=== PATIENT | male | born 1965 | race Caucasian/White ===

== ENCOUNTER → 2016-08-03 | Outpatient (CLI) | payer OTHER ==
[~2016-08-03] MED LIST: ASPI-515 PO; ATEN25TA PO; CHOL200024 PO; FAMO10TA PO; IBUP800T PO; METH750T2 PO; SIMV40TA3 PO; UBID100C24 PO
== END | disposition home or self-care (01) ==
LOC: CFH 16:02
PROVIDERS: ATTEND Family Medicine
DX: R22.2 Localized swelling, mass and lump, trunk (principal); M79.89 Other specified soft tissue disorders
CPT/HCPCS: 76604

== ENCOUNTER 2016-08-17 16:45 | Observation (INO) | payer OTHER ==
[~2016-08-17] VITALS: Ht 177.8 cm; Wt 140.0 kg
[2016-08-17] MEDS ORDERED: SODIUM CHLORIDE FLUSH 10ML SYR IVF ONE (17:30)
[2016-08-17] MEDS ORDERED: ASPIRIN 81 MG TABLET CHEW PO ONE (17:30)
[2016-08-17 17:37] LABS: BLOOD UREA NITROGEN 33 mg/dL (7-18)
[2016-08-17 17:41] LABS: IS PT STATUS REG ER OR PRE ER? YES
[2016-08-17] MEDS ORDERED: ASPIRIN 81 MG TABLET CHEW ONE (18:06)
[2016-08-17] MEDS ORDERED: SODIUM CHLORIDE FLUSH 10ML SYR IVF PRN (19:00)
[2016-08-17] MEDS ORDERED: POLYETHYLENE GLYCOL 17 GM PACKET PO PRN (20:00)
[2016-08-17] MEDS ORDERED: BISACODYL 10 MG SUPP PR PRN (20:00)
[2016-08-17] MEDS ORDERED: DOCUSATE 100 MG CAPSULE PO PRN (20:00)
[2016-08-17] MEDS ORDERED: ONDANSETRON ODT 4 MG PO PRN (20:00)
[2016-08-17] MEDS ORDERED: TRAZODONE 50MG TABLET PO PRN (20:00)
[2016-08-17] MEDS ORDERED: ACETAMINOPHEN 325 MG TABLET PO PRN (20:00)
[2016-08-17] MEDS ORDERED: LABETALOL 5MG/ML, 20ML IV PRN (20:00)
[2016-08-17] MEDS: ENOXAPARIN 40 MG/0.4 ML SQ SCH (21:49)
[2016-08-17] MEDS: ATORVASTATIN 80 MG TABLET PO SCH (21:49)
[2016-08-17 21:52] VITALS: BP 144/87
[2016-08-17] MEDS: SODIUM CHLORIDE 0.9% 1,000 ML IV SCH (22:07)
[2016-08-17 23:31] LABS: IS PT STATUS REG ER OR PRE ER? NO
[2016-08-18 02:44] VITALS: BP 135/71
[2016-08-18 05:29] LABS: ASPARTATE AMINO TRANSFERASE 22 U/L (15-37); BLOOD UREA NITROGEN 29 mg/dL (7-18)
[2016-08-18 05:36] LABS: IS PT STATUS REG ER OR PRE ER? NO
[2016-08-18] MEDS: SODIUM CHLORIDE 0.9% 1,000 ML IV SCH ×2 (07:30→16:03)
[2016-08-18] MEDS ORDERED: REGADENOSON 0.4 MG/5 ML SYRINGE ONE (08:03)
[2016-08-18 08:12] VITALS: BP 147/94
[2016-08-18] MEDS: CHOLECALCIFEROL 1,000 UNIT TABLET PO SCH (10:40)
[2016-08-18] MEDS: ASPIRIN 81 MG TABLET EC PO SCH (10:40)
[2016-08-18 17:38] VITALS: BP 150/88
[2016-08-18 19:46] VITALS: BP 137/83
[2016-08-18] MEDS: ATORVASTATIN 80 MG TABLET PO SCH (20:13)
[2016-08-18] MEDS: ENOXAPARIN 40 MG/0.4 ML SQ SCH (20:14)
[2016-08-19] MEDS: SODIUM CHLORIDE 0.9% 1,000 ML IV SCH (01:06)
[2016-08-19 03:08] VITALS: BP 120/75
[2016-08-19 08:10] VITALS: BP 132/86
[2016-08-19] MEDS: CHOLECALCIFEROL 1,000 UNIT TABLET PO SCH (10:26)
[2016-08-19] MEDS: ASPIRIN 81 MG TABLET EC PO SCH (10:27)
[2016-08-19 14:31] VITALS: BP 119/76
== END 2016-08-19 15:08 | disposition home or self-care (01) ==
LOC: ED 19:05 → EDIP 19:15 → INTOOBSV 19:15 → 5SO 20:03
PROVIDERS: ADMIT Internal Medicine
DX: R07.89 Other chest pain (principal); I25.10 Atherosclerotic heart disease of native coronary artery without angina pectoris; M54.9 Dorsalgia, unspecified; M25.511 Pain in right shoulder; I10 Essential (primary) hypertension; E78.5 Hyperlipidemia, unspecified; M06.9 Rheumatoid arthritis, unspecified; K21.9 Gastro-esophageal reflux disease without esophagitis; I25.2 Old myocardial infarction; E66.01 Morbid (severe) obesity due to excess calories; Z86.711 Personal history of pulmonary embolism; Z95.1 Presence of aortocoronary bypass graft; Z95.5 Presence of coronary angioplasty implant and graft; Z98.890 Other specified postprocedural states; Z82.3 Family history of stroke
CPT/HCPCS: 36415; 71020; 78452; 80048; 80053; 80061; 82040; 83735; 84439; 84443; 84484; 85025; 85379; 93005; 93017; 96360; 96361; 96372; 99285; A9502; C9898; G0378; J1650; J2785; J7030

== ENCOUNTER → 2017-07-08 | Outpatient (CLI) | payer OTHER ==
[~2017-07-08] MED LIST changes: -FAMO10TA PO; +FAMO10TA90 PO; +IBUP-1223 PO; -IBUP800T PO
== END | disposition home or self-care (01) ==
LOC: CFH 15:39
PROVIDERS: ATTEND Family Medicine
DX: R07.81 Pleurodynia (principal)
CPT/HCPCS: 71111

== ENCOUNTER → 2018-04-05 | Outpatient (CLI) | payer OTHER | END | disposition home or self-care (01) | LOC: CFH 14:25 | PROVIDERS: ATTEND Family Medicine | DX: M25.561 Pain in right knee (principal) ==

== ENCOUNTER 2019-09-18 16:15 | Inpatient (IN) | payer BC, OTHER ==
[~2019-09-18] VITALS: Ht 177.8 cm; Wt 141.5 kg
[~2019-09-18 16:15] MED LIST changes: +GARL1TAB2 PO; +METO25TA91 PO; +NAPR220C2 PO; +OMEG1CAP30 PO; +SIMV40TA20 PO; -SIMV40TA3 PO
--- NOTE | 2019-09-18 16:48 | NUR ---
Pt states he is having a hard time breathing. recently at [facility] for blood clots in heart and lungs. new rx asa, simvastatin and xeralto. Pt visibly working hard to breathe. Placed Pt on silverware etcher, large bore IV started. Pt VS stable at this time. Will continue to monitor.
[2019-09-18] MEDS ORDERED: SODIUM CHLORIDE FLUSH 10ML SYR IVF ONE (17:00)
[2019-09-18 17:15] LABS: BASOPHILS # (AUTO) 0.04 x10^3/uL (0-0.1); BASOPHILS % (AUTO) 1 % (0-1); EOSINOPHILS # (AUTO) 1.09 x10^3/uL (0-0.4); EOSINOPHILS % (AUTO) 15 % (1-7); LYMPHOCYTES # (AUTO) 1.67 x10^3/uL (1-3.4); LYMPHOCYTES % (AUTO) 22 % (22-44); MD NO; MEAN CORPUSCULAR HEMOGLOBIN 26.8 pg (27.5-34.5); MEAN CORPUSCULAR HGB CONC 32.5 g/dL (33.2-36.2); MEAN CORPUSCULAR VOLUME 82.4 fL (81-97); MEAN PLATELET VOLUME 8.8 fL (7.4-10.4); MONOCYTES # (AUTO) 0.64 x10^3/uL (0.2-0.8); MONOCYTES % (AUTO) 9 % (2-9); NEUTROPHILS # (AUTO) 4.02 x10^3/uL (1.8-6.8); NEUTROPHILS % (AUTO) 54 % (42-75); PLATELET COUNT 193 x10^3/uL (130-400); RED BLOOD COUNT 4.98 x10^6/uL (4.38-5.82); RED CELL DISTRIBUTION WIDTH 15.5 % (9.4-14.8)
[2019-09-18 17:21] LABS: ALANINE AMINOTRANSFERASE 39 U/L (12-78); ANION GAP 7 mmol/L (5-15); CALCIUM 8.4 mg/dL (8.5-10.1); CHLORIDE 109 mmol/L (98-107); CREATININE 0.95 mg/dL (0.7-1.3)
[2019-09-18 17:26] LABS: ALKALINE PHOSPHATASE 71 U/L (45-117); BILIRUBIN,TOTAL 0.8 mg/dL (0.2-1.0); TOTAL PROTEIN 7.4 g/dL (6.4-8.2); TROPONIN I < 0.015 ng/mL (0.000-0.045)
[2019-09-18] MEDS ORDERED: OMNIPAQUE 350 MG/ML, 75ML BOTTLE ONE (18:04)
--- NOTE | 2019-09-18 18:12 | NUR ---
TASK RN: PT TO CT AND BACK. STATES HE VOMITED WHEN GIVEN IV CONTRAST. DENIES NAUSEA AT THIS TIME.
--- NOTE | 2019-09-18 20:48 | NUR ---
US TECH HERE TO TAKE PT FOR PROCEDURE.
[2019-09-18] MEDS ORDERED: ACETAMINOPHEN 325 MG TABLET PO PRN (22:30)
[2019-09-18] MEDS ORDERED: LABETALOL 5MG/ML, 20ML IVPush PRN (22:30)
[2019-09-18] MEDS ORDERED: ONDANSETRON 2MG/ML, 2ML IVPush PRN (22:30)
[2019-09-18] MEDS ORDERED: RIVAROXABAN 10 MG TABLET ONE (22:39)
[2019-09-18] MEDS: RIVAROXABAN 15 MG TABLET PO SCH (23:04)
--- NOTE | 2019-09-19 00:05 | NUR ---
ASSUMED PATIENT CARE AT THIS TIME.
--- NOTE | 2019-09-19 01:00 | NUR ---
PATIENT RESTING IN BED/EVEN UNLABORED RESPIRATIONS, NO NOTED ACUTE DISTRESS. PATIENT'S VITAL SIGNS ARE STABLE. CALL LIGHT WITHIN REACH, BED IN LOWEST LOCKED POSITION. WILL CONTINUE TO MONITOR.
--- NOTE | 2019-09-19 01:59 | NUR ---
BREAK RN. PT RESTING ON [employer] WATCHING TV. VSS. CALL LIGHT WITHIN REACH.
--- NOTE | 2019-09-19 02:10 | NUR ---
REPORT GIVEN TO BREAK RN
--- NOTE | 2019-09-19 02:40 | NUR ---
PATIENT HAS BEEN MOVED FROM [facility] TO [facility] BED TO IMPROVE PATIENT COMFORT. PATIENT IS RESTING IN BED, EVEN-UNLABORED RESPIRATIONS. NO NOTED ACUTE DISTRESS AT THIS TIME. BED IN LOWEST LOCKED POSITION, CALL LIGHT WITHIN REACH. PER GIVEN REPORT PATIENT USED URINAL WITHOUT COMPLICATIONS.
--- NOTE | 2019-09-19 04:19 | NUR ---
PATIENT RESTING IN BED, EVEN-UNLABORED RESPIRATIONS. NO NOTED ACUTE DISTRESS. NO NEEDS IDENTIFIED AT THIS TIME. WILL CONTINUE TO MONITOR.
--- NOTE | 2019-09-19 05:34 | NUR ---
PATIENT LYING ON SIDE IN BED, NO NOTED ACUTE DISTRESS. VITAL SIGNS REMAIN UNCHANGED. WILL CONTINUE TO MONITOR.
[2019-09-19 05:41] LABS: BASOPHILS # (AUTO) 0.03 x10^3/uL (0-0.1); BASOPHILS % (AUTO) 1 % (0-1); EOSINOPHILS # (AUTO) 1.23 x10^3/uL (0-0.4); EOSINOPHILS % (AUTO) 18 % (1-7); LYMPHOCYTES # (AUTO) 1.61 x10^3/uL (1-3.4); LYMPHOCYTES % (AUTO) 24 % (22-44); MD NO; MEAN CORPUSCULAR HEMOGLOBIN 26.9 pg (27.5-34.5); MEAN CORPUSCULAR HGB CONC 32.7 g/dL (33.2-36.2); MEAN CORPUSCULAR VOLUME 82.2 fL (81-97); MEAN PLATELET VOLUME 8.8 fL (7.4-10.4); MONOCYTES % (AUTO) 9 % (2-9); NEUTROPHILS % (AUTO) 48 % (42-75); PLATELET COUNT 182 x10^3/uL (130-400); RED BLOOD COUNT 4.87 x10^6/uL (4.38-5.82); RED CELL DISTRIBUTION WIDTH 15.4 % (9.4-14.8)
[2019-09-19 05:49] LABS: ANION GAP 7 mmol/L (5-15); CALCIUM 8.7 mg/dL (8.5-10.1); CHLORIDE 109 mmol/L (98-107); CREATININE 0.99 mg/dL (0.7-1.3)
--- NOTE | 2019-09-19 06:21 | NUR ---
PATIENT RESTING IN BED, NO NOTED ACUTE DISTRESS. VITAL SIGNS STABLE. NO NOTED NEEDS AT THIS TIME. WILL CONTINUE TO MONITOR.
--- NOTE | 2019-09-19 06:42 | NUR ---
PATIENT AWAKE IN ROOM, UPDATED ON PLAN OF CARE. NO NOTED NEEDS AT THIS TIME. CALL LIGHT WITHIN REACH, BED IN LOWEST LOCKED POSITION.
--- NOTE | 2019-09-19 06:58 | NUR ---
REPORT GIVEN TO ONCOMING RN
--- NOTE | 2019-09-19 08:01 | NUR ---
MED BARON FROM PHARMACY.
--- NOTE | 2019-09-19 08:11 | NUR ---
PT AMBULATED TO THE BR W/ A STEADY GAIT. RETURNED TO ROOM. CONNECTED TO MONITORING. RESP EVEN AND UNLABORED, NADN. BREAKFAST TRAY DELIVERED.
[2019-09-19] MEDS: RIVAROXABAN 15 MG TABLET PO SCH ×2 (08:21→16:38)
--- NOTE | 2019-09-19 08:59 | NUR ---
PT RESTING ON GURNEY, WATCING TV. RESP EVEN AND UNLABORED, VSS, NADN. AWAITING ADMIT.
--- NOTE | 2019-09-19 10:02 | NUR ---
PT RESTING ON GURNEY, WATCING TV. RESP EVEN AND UNLABORED, VSS, NADN. AWAITING ADMIT.
[2019-09-19] MEDS ORDERED: ASPIRIN 81 MG TABLET EC ONE (10:05)
[2019-09-19] MEDS: METOPROLOL SUCCINATE 25 MG TAB.ER.24H PO SCH (10:29)
[2019-09-19] MEDS: ASPIRIN 81 MG TABLET EC PO SCH (10:29)
--- NOTE | 2019-09-19 10:34 | NUR ---
PT MEDICATED PER EMAR. PT TITRATED DOWN TO 1L NC, 96%. PT RESP EVEN AND UNLABORED, VSS, NADN. AWAITING ADMIT.
--- NOTE | 2019-09-19 10:47 | NUR ---
REPORT GIVEN TO SHRUTHI MICHELLE. PT IS READY FOR TRANSPORT.
[2019-09-19 12:23] VITALS: BP 148/78
[2019-09-19] MEDS ORDERED: FUROSEMIDE 20 MG/2 ML ONE (17:03)
[2019-09-19] MEDS: FUROSEMIDE 20 MG/2 ML IV SCH (17:09)
[2019-09-19 18:33] VITALS: BP 130/82
[2019-09-19] MEDS: SIMVASTATIN 40 MG TABLET PO SCH (22:00)
[2019-09-20] VITALS: BP 142/86
[2019-09-20 06:59] LABS: BASOPHILS # (AUTO) 0.06 x10^3/uL (0-0.1); BASOPHILS % (AUTO) 1 % (0-1); EOSINOPHILS # (AUTO) 1.17 x10^3/uL (0-0.4); EOSINOPHILS % (AUTO) 17 % (1-7); LYMPHOCYTES # (AUTO) 1.39 x10^3/uL (1-3.4); LYMPHOCYTES % (AUTO) 20 % (22-44); MD NO; MEAN CORPUSCULAR HGB CONC 32.2 g/dL (33.2-36.2); MEAN CORPUSCULAR VOLUME 83.8 fL (81-97); MEAN PLATELET VOLUME 8.3 fL (7.4-10.4); MONOCYTES # (AUTO) 0.58 x10^3/uL (0.2-0.8); MONOCYTES % (AUTO) 8 % (2-9); NEUTROPHILS # (AUTO) 3.76 x10^3/uL (1.8-6.8); NEUTROPHILS % (AUTO) 54 % (42-75); PLATELET COUNT 184 x10^3/uL (130-400); RED BLOOD COUNT 5.17 x10^6/uL (4.38-5.82); RED CELL DISTRIBUTION WIDTH 15.1 % (9.4-14.8)
[2019-09-20 07:02] LABS: ALANINE AMINOTRANSFERASE 31 U/L (12-78); ALBUMIN 2.8 g/dL (3.4-5.0); ANION GAP 4 mmol/L (5-15); CALCIUM 8.5 mg/dL (8.5-10.1); CHLORIDE 106 mmol/L (98-107); CREATININE 1.02 mg/dL (0.7-1.3)
[2019-09-20 07:04] LABS: ALKALINE PHOSPHATASE 75 U/L (45-117); BILIRUBIN,TOTAL 0.9 mg/dL (0.2-1.0); TOTAL PROTEIN 7.3 g/dL (6.4-8.2)
[2019-09-20 08:00] VITALS: BP 131/76
[2019-09-20] MEDS: ASPIRIN 81 MG TABLET EC PO SCH (09:37)
[2019-09-20] MEDS: FUROSEMIDE 20 MG/2 ML IV SCH ×2 (09:37→18:21)
[2019-09-20] MEDS: METOPROLOL SUCCINATE 25 MG TAB.ER.24H PO SCH (09:38)
[2019-09-20] MEDS: RIVAROXABAN 15 MG TABLET PO SCH ×2 (09:38→18:38)
[2019-09-20 15:15] VITALS: BP 131/83
[2019-09-20 19:58] VITALS: BP 130/80
[2019-09-20] MEDS: SIMVASTATIN 40 MG TABLET PO SCH (21:06)
[2019-09-21 00:19] VITALS: BP 125/85
[2019-09-21 08:16] VITALS: BP 133/88
[2019-09-21] MEDS: ASPIRIN 81 MG TABLET EC PO SCH (09:00)
[2019-09-21 10:49] VITALS: BP 111/72
[2019-09-21] MEDS: RIVAROXABAN 15 MG TABLET PO SCH (10:52)
[2019-09-21] MEDS: METOPROLOL SUCCINATE 25 MG TAB.ER.24H PO SCH (10:52)
[2019-09-21] MEDS ORDERED: RIVA15TA PO (12:06)
[2019-09-21] MEDS ORDERED: RIVA20TA PO (12:06)
[2019-09-21] MEDS ORDERED: FURO-93 PO (12:16)
[2019-09-21 12:20] VITALS: BP 134/92
[2019-09-22] MEDS ORDERED: FUROSEMIDE 20 MG TABLET PO SCH (09:00)
[2019-09-25] MEDS ORDERED: RIVAROXABAN 20 MG TABLET PO SCH (17:00)
== END 2019-09-21 14:00 | disposition home or self-care (01) | DRG 178 ==
LOC: ED 20:52 → EDIP 22:02 → 4NE 09-19 11:12
PROVIDERS: ADMIT Family Medicine; ATTEND Hospitalist
PROC: 0W993ZZ Drainage of Right Pleural Cavity, Percutaneous Approach (ICD-10-PCS; principal; 2019-09-18)
DX: U07.1 COVID-19 (principal); D68.59 Other primary thrombophilia; Z68.41 Body mass index [BMI] 40.0-44.9, adult; J98.11 Atelectasis; E66.01 Morbid (severe) obesity due to excess calories; E78.5 Hyperlipidemia, unspecified; M06.9 Rheumatoid arthritis, unspecified; I10 Essential (primary) hypertension; I25.10 Atherosclerotic heart disease of native coronary artery without angina pectoris; I25.2 Old myocardial infarction; Z79.899 Other long term (current) drug therapy; Z86.711 Personal history of pulmonary embolism; Z95.1 Presence of aortocoronary bypass graft
CPT/HCPCS: 32555; 36415; 71045; 71275; 80048; 80053; 82042; 83615; 83880; 84157; 84484; 85025; 87070; 87075; 87205; 89051; 93005; 93308; 93321; 93325; G0378; Q9967; J1940; U0001-CS

== ENCOUNTER → 2019-10-11 | Outpatient (CLI) | payer BC ==
[~2019-10-11] MED LIST changes: +FURO-93 PO; +RIVA15TA PO; +RIVA20TA PO
== END | disposition home or self-care (01) ==
LOC: RAD 16:36
PROVIDERS: ATTEND Registered Nurse
DX: I26.99 Other pulmonary embolism without acute cor pulmonale (principal); Z86.711 Personal history of pulmonary embolism
CPT/HCPCS: 71046

== ENCOUNTER 2019-12-18 17:45 | Emergency (ER) | payer BC ==
[~2019-12-18] VITALS: Ht 177.8 cm; Wt 140.7 kg
--- NOTE | 2019-12-18 18:35 | NUR ---
PT PLACED ON MONITOR, LABS TAKEN, IV PLACED, AND PT PLACED IN POSITION OF COMFORT. PT C/O SHORTNESS OF BREATH. PT PERIODICALLY TAKES A DEEP BREATH WHEN SHORT OF BREATH. PT DENIES CHEST PAIN, EXT TINGLING, OR HEADACHE. PT HAD COVID DIAGNOSED September. MD AT BEDSIDE.
[2019-12-18 18:36] LABS: BASOPHILS # (AUTO) 0.03 x10^3/uL (0-0.1); BASOPHILS % (AUTO) 1 % (0-1); EOSINOPHILS # (AUTO) 0.62 x10^3/uL (0-0.4); EOSINOPHILS % (AUTO) 10 % (1-7); LYMPHOCYTES # (AUTO) 1.81 x10^3/uL (1-3.4); LYMPHOCYTES % (AUTO) 29 % (22-44); MD NO; MEAN CORPUSCULAR HEMOGLOBIN 26.5 pg (27.5-34.5); MEAN CORPUSCULAR HGB CONC 32.5 g/dL (33.2-36.2); MEAN CORPUSCULAR VOLUME 81.6 fL (81-97); MEAN PLATELET VOLUME 9.4 fL (7.4-10.4); MONOCYTES # (AUTO) 0.48 x10^3/uL (0.2-0.8); MONOCYTES % (AUTO) 8 % (2-9); NEUTROPHILS # (AUTO) 3.31 x10^3/uL (1.8-6.8); NEUTROPHILS % (AUTO) 53 % (42-75); PLATELET COUNT 138 x10^3/uL (130-400); RED BLOOD COUNT 5.39 x10^6/uL (4.38-5.82); RED CELL DISTRIBUTION WIDTH 15.9 % (9.4-14.8)
[2019-12-18 18:45] LABS: ALBUMIN 3.5 g/dL (3.4-5.0); ANION GAP 6 mmol/L (5-15); CALCIUM 8.7 mg/dL (8.5-10.1); CHLORIDE 109 mmol/L (98-107)
--- NOTE | 2019-12-18 18:50 | NUR ---
assumed care of pt. report khari Davey RN and Paulette MICHELLE. awaiting test results
[2019-12-18 18:52] LABS: ALANINE AMINOTRANSFERASE 35 U/L (12-78); ALKALINE PHOSPHATASE 92 U/L (45-117); BILIRUBIN,TOTAL 0.8 mg/dL (0.2-1.0); CREATININE 0.98 mg/dL (0.7-1.3); TOTAL PROTEIN 7.6 g/dL (6.4-8.2); TROPONIN I < 0.015 ng/mL (0.000-0.045)
--- NOTE | 2019-12-18 19:03 | NUR ---
US at bedside
[2019-12-18] MEDS ORDERED: OMNIPAQUE 350 MG/ML, 75ML BOTTLE ONE (20:15)
--- NOTE | 2019-12-18 20:25 | NUR ---
pt resting on gurney watching [employer] on phone. no apaprent distress, no c/o at this time. positioning for comfort. updated on POC
--- NOTE | 2019-12-18 21:09 | NUR ---
no changes. chart up for MD recheck
[2019-12-18 21:32] VITALS: BP 128/70
== END 2019-12-18 21:36 | disposition home or self-care (01) ==
LOC: ED 21:17
DX: R06.00 Dyspnea, unspecified (principal); R07.89 Other chest pain; R05 Cough; I45.10 Unspecified right bundle-branch block; Z95.1 Presence of aortocoronary bypass graft
CPT/HCPCS: 36415; 71275; 80053; 83880; 84484; 85025; 93005; 93971; 99285; Q9967